=== PATIENT | female | born 1985 | race African-American/Black ===

== ENCOUNTER 2018-07-26 22:02 | Emergency (ER) | payer MEDICAID, OTHER ==
[~2018-07-26] VITALS: Ht 162.6 cm; Wt 68.0 kg
[~2018-07-26 22:02] MED LIST: NKM
--- NOTE | 2018-07-26 22:06 | NUR ---
ED Nurse Note: Patient presents with complaints of toothache x 2 days. 8/10 on pain scale.
[2018-07-26 22:17] VITALS: BP 137/91
--- NOTE | 2018-07-26 22:19 | Emergency Room Report ---
History of Present Illness General Chief Complaint: Toothache Source: Patient Present Illness HPI This a 32-year-old female with no past medical history. She presents with complaint of dental pain. Onset for last 2 days. Some swelling also to the right upper face area. No nausea no vomiting pain is 9 out of 10. Worse with eating. No drainage. Allergies: Coded Allergies: SHELLFISH DERIVED (Verified Allergy, Intermediate, Anaphylaxis, 09/24/14) Uncoded Allergies: Iodoine (Adverse Reaction, Mild, Itching, 09/25/14) Patient History Past Medical History: see triage record, old chart reviewed Past Surgical History: appy Pertinent Family History: none Social History: Denies: smoking Last Menstrual Period: 07/09/18 Now: No Immunizations: other Reviewed Nursing Documentation: PMH: Agreed; PSxH: Agreed Nursing Documentation-PMH Past Medical History: No Stated History Hx Cardiac Problems: No Hx Cancer: No Hx Gastrointestinal Problems: No Hx Neurological Problems: No Review of Systems Eye: Denies: eye pain, blurred vision ENT: Denies: ear pain, nose congestion, throat swelling Respiratory: Denies: cough, shortness of breath Cardiovascular: Denies: chest pain, palpitations Gastrointestinal: Denies: abdominal pain, diarrhea, nausea, vomiting Musculoskeletal: Denies: back pain, joint pain Skin: Denies: rash Neurological: Denies: headache, numbness Endocrine: Denies: increased thirst, increased urine Hematologic/Lymphatic: Denies: easy bruising All Other Systems: negative except mentioned in HPI Physical Exam Vital Signs Date Time Temp Pulse Resp B/P (MAP) Pulse Ox O2 Delivery O2 Flow Rate FiO2 07/26/18 22:07 99.3 95 16 137/91 (106) 97 Room Air Vitals unremarkable Sp02 EP Interpretation: reviewed, normal General Appearance: well appearing, no apparent distress, alert Head: normocephalic, atraumatic Eyes: bilateral eye PERRL, bilateral eye EOMI ENT: hearing grossly normal, normal pharynx, other - Right face lateral to the nostril shows some edema and tenderness. No mass. Poor dentition. Decay over the first premolar. Neck: full range of motion, supple, no meningismus Respiratory: chest non-tender, lungs clear, normal breath sounds Cardiovascular #1: regular rate, rhythm, no murmur Gastrointestinal: normal bowel sounds, non tender, no mass, no organomegaly, no bruit, non-distended Musculoskeletal: back normal, gait/station normal, normal range of motion Psychiatric: mood/affect normal Skin: warm/dry Medical Decision Making Diagnostic Impression: Primary Impression: Dental abscess ER Course Patient with early dental abscess. Nothing to be I&D at this moment. Antibiotics given here. She will need to see a dentist JANETTE. No Evidence of deep infection or cellulitis. Last Vital Signs Date Time Temp Pulse Resp B/P (MAP) Pulse Ox O2 Delivery O2 Flow Rate FiO2 07/26/18 22:17 99.3 78 16 137/91 97 Room Air Status: improved Disposition: HOME, SELF-CARE Condition: Stable Scripts Ibuprofen* (MOTRIN*) 600 Mg Tablet 600 MG ORAL THREE TIMES A DAY, #30 TAB 0 Refills Prov: Kirit Nam MD 07/26/18 Hydrocodone/Acetaminophen 5-325* (HYDROCODONE/ACETAMINOPHEN 5-325*) 1 Each Tablet 1 TAB ORAL Q6H PRN for For Pain, #10 TAB 0 Refills Prov: Kirit Nam MD 07/26/18 Clindamycin Hcl (CLINDAMYCIN HCL) 300 Mg Capsule 300 MG ORAL THREE TIMES A DAY, #21 CAP Prov: Kirit Nam MD 07/26/18 Patient Instructions: Dental Pain Additional Instructions: Follow-up with dentist JANETTE. Return if worse. Kirit Nam MD Jul 26, 2018 22:19
--- NOTE | 2018-07-26 22:20 | NUR ---
ED Nurse Note: Patient tolerated medication well.
[2018-07-26] MEDS ORDERED: HYDROCODON-ACE1 EA15 ORAL (22:23)
[2018-07-26] MEDS ORDERED: CLINDAMYCIN HC300 MG ORAL (22:23)
[2018-07-26] MEDS ORDERED: IBUPROFEN600 MG ORAL (22:23)
[2018-07-26 22:29] VITALS: BP 137/91
--- NOTE | 2018-07-26 22:29 | NUR ---
ED Nurse Note: Patient cleared for discharge, patient verbalized understanding of discharge instructions. Id band removed. Patient escorted to discharge desk prior to departure with all belongings.
[2018-07-26] MEDS ORDERED: HYDROcodone/Acetamin 5/325 tab ORAL ONE (22:30)
[2018-07-26] MEDS ORDERED: Clindamycin 150mg cap ORAL ONE (22:30)
== END 2018-07-26 22:40 | disposition home or self-care (01) ==
LOC: EMR 22:30
DX: K04.7 Periapical abscess without sinus (principal); Z91.013 Allergy to seafood; Z91.041 Radiographic dye allergy status
CPT/HCPCS: 99282